=== PATIENT | male | born 1985 | race Caucasian/White ===

== ENCOUNTER 2016-05-24 13:18 | Emergency (ER) | payer BC, OTHER ==
[~2016-05-24] VITALS: Ht 167.6 cm; Wt 78.6 kg
[~2016-05-24 13:18] MED LIST: ACET-1138 PO; ASPEC81 PO; CLB200 PO; KLN1X PO; OXYSR10 PO; RXC5 PO; SNK PO
[2016-05-24 13:25] VITALS: Ht 167.6 cm; Wt 78.6 kg
[2016-05-24] MEDS ORDERED: KETOROLAC TROMETHAMINE 30 MG/ML VIAL IV STA (15:23)
[2016-05-24 15:33] LABS: URINE APPEARANCE CLEAR (CLEAR); URINE BILIRUBIN NEG (NEG); URINE COLOR YELLOW; URINE EPITHELIAL CELL AUTO 20-30 /lpf (0-5); URINE NITRITE NEG (NEG); URINE PH 6.5 (4.5-7.5); URINE SPECIFIC GRAVITY 1.028 (1.000-1.030); UROBILINOGEN NEG (NEG)
[2016-05-24 15:35] LABS: MANUAL MICROSCOPIC REQUIRED? NO; REVIEW REQ? NO
[2016-05-24 15:47] LABS: BASO % 0.4 %; BASO ABS # 0.04 K/uL (0-0.2); COMPLETE YES; EOS % 1.1 %; HEMATOCRIT 41.5 % (42-52); IG% 0.6 %; LYMPH % 25.5 %; LYMPH ABS # 2.79 K/uL (1.2-3.4); MEAN CELL VOLUME 85.2 fL (80-100); MEAN CORPUSCULAR HEMOGLOBIN 28.1 pg (25-34); MEAN PLATELET VOLUME 8.5 fL (7.4-10.4); MONO % 7.8 %; NEUT % 64.6 %; PLATELET COUNT 401 K/uL (130-400); RED BLOOD COUNT 4.87 M/uL (4.7-6.1); WHITE BLOOD COUNT 10.96 K/uL (4.8-10.8)
--- NOTE | 2016-05-24 15:58 | DIAGNOSTIC IMAGING REPORT ---
CHEST ONE VIEW PORTABLE CLINICAL HISTORY: htn dyspnea COMPARISON STUDY: 07/25/2015 FINDINGS: The bones soft tissues and hemidiaphragms are normal. The cardiomediastinal silhouette is normal. The lungs are clear. The pulmonary vasculature is normal. IMPRESSION: Negative chest. Electronically signed by: Juan Meza M.D. 05/24/2016 3:56 PM Dictated Date/Time: 05/24/2016 3:56 PM
--- NOTE | 2016-05-24 16:01 | DIAGNOSTIC IMAGING REPORT ---
CT SCAN OF THE BRAIN WITHOUT IV CONTRAST CLINICAL HISTORY: Headache. COMPARISON STUDY: CT of the brain dated 02/26/2014. TECHNIQUE: Unenhanced axial CT scan of the brain is performed from the vertex to the skull base. Automated dose control exposure was utilized. CT DOSE: 537.48 mGy.cm FINDINGS: Brain parenchyma: The brain parenchyma is normal in appearance. There is no hemorrhage, mass effect, or evidence of acute territorial ischemia by CT criteria. Nieto-white matter is preserved. No extra-axial fluid collection is seen. Ventricles, sulci, cisterns: Normal in configuration. Intracranial vasculature: The visualized intracranial vasculature at the skull base is normal in appearance. Calvarium: Unremarkable. Sinuses and mastoids: Trace mucosal thickening is seen in the left maxillary antrum. The remaining visualized paranasal sinuses are clear. The mastoid air cells are well pneumatized. Orbits: The bony orbits are grossly intact. IMPRESSION: No acute intracranial abnormality. Electronically signed by: Omar Carrion M.D. 05/24/2016 4:00 PM Dictated Date/Time: 05/24/2016 3:58 PM
[2016-05-24 16:10] LABS: BLOOD UREA NITROGEN 11 mg/dl (7-18); CALCIUM 8.9 mg/dl (8.5-10.1); CARBON DIOXIDE 32 mmol/L (21-32); CHLORIDE 103 mmol/L (98-107); GLUCOSE 93 mg/dl (70-99); POTASSIUM 4.3 mmol/L (3.5-5.1); SODIUM 141 mmol/L (136-145)
[2016-05-24] MEDS ORDERED: OXYC-57 PO (16:11)
[2016-05-24] MEDS ORDERED: META-38 PO (16:11)
[2016-05-24] MEDS ORDERED: LISI-725 PO (16:11)
[2016-05-24] MEDS ORDERED: ETAN50IN2 PO (16:11)
[2016-05-24] MEDS ORDERED: CLON1TAB3 PO (16:11)
[2016-05-24] MEDS ORDERED: NAPR1TAB9 PO (16:31)
--- NOTE | 2016-05-24 16:31 | DIAGNOSTIC IMAGING REPORT ---
LEFT SHOULDER MIN 2 VIEWS ROUTINE CLINICAL HISTORY: Left shoulder pain COMPARISON: None. DISCUSSION: No acute fractures are visualized. There are no dislocations. Small subchondral cysts are suspected within the humeral head. No periarticular calcifications are evident IMPRESSION: 1. Suspected subchondral cysts within the humeral head 2. No acute fractures or dislocations identified. Electronically signed by: Reggie Bowden M.D. 05/24/2016 4:30 PM Dictated Date/Time: 05/24/2016 4:29 PM
--- NOTE | 2016-05-24 17:26 | EMERGENCY ROOM VISIT NOTE ---
History Report prepared by Atul: Simin Sherwood Under the Supervision of: Dr. Iker Godwin D.O. First contact with patient: 14:57 Chief Complaint: HYPERTENSION Stated Complaint: HIGH BLOOD PRESSURE, ANN, DIZZY 220/110 History of Present Illness The patient is a 31 year old male who presents to the Emergency Room with complaints of persistent hypertension that began a few weeks ago. He currently rates his discomfort as a 7/10 in severity. The patient states that a few weeks ago he was feeling dizzy so he stopped at [employer] at work to have his blood pressure read. He states that it was 180/110 mmHg so he went to his PCP the next morning. The patient states that he was started on Lisinopril in the mornings. He states that he was instructed to stop at [employer] [facility] work each morning to have his blood pressure checked. The patient states that today he stopped and it was 160/110. He states that around 1245 he was going for lunch and he started feeling lightheaded and dizzy, and additionally noticed a headache. The patient states that he had his blood pressure rechecked and it was 220/110 mmHg. He denies his dizziness being a room spinning sensation, but describes it as feeling spacey, and losing consciousness and blacking out. The patient states that his headache is all over his head and is achy in nature, and additionally notices neck pain. He states that he has experienced blurry vision with his hypertension. The patient additionally notes nausea with his symptoms and states that he developed abdominal pain, but states that he ate a large lunch today. 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 The patient states that he lifts often, but denies doing much cardio. He states that he is an occasional smoker and states that he takes lifting supplements. The patient denies any drug or alcohol use, and additionally denies any steroid use. Pt denies fevers, chest pain, vomiting , diarrhea, pain with urination, and melena. Source of History: patient Onset: a few weeks ago Position: other (global) Symptom Intensity: 7/10 Quality: other (hypertension) Timing: other (persistent) Associated Symptoms: + SOB, + abdominal pain, + headache, + nausea, + neck pain Note: Associated Symptoms: blacking out, dizziness, lightheadedness, blurry vision, spacey Review of Systems See HPI for pertinent positives & negatives. A total of 10 systems reviewed and were otherwise negative. Past Medical & Surgical Medical Problems: (1) No Known Active Medical Problems Surgical Problems: (1) Post-operative state Family History No pertinent family history Social History Smoking Status: Current Some Day Smoker Marital Status: Housing Status: lives with significant other Occupation Status: employed Current/Historical Medications Scheduled Acetaminophen (Tylenol Extra Strength), 1,000 MG PO Q8 Etanercept (Enbrel), 50 MG PO WK Lisinopril (Zestril), 20 MG PO DAILY Naproxen (Aleve), 440 MG PO PRN UD Scheduled PRN Clonazepam (Klonopin), 1 MG PO BID PRN for Anxiety Metaxalone (Skelaxin), 800 MG PO QID PRN for Muscle Spasms Oxycodone/Acetaminophen 5MG/325MG (Percocet 5MG/325MG), 1 TABLET PO Q6H PRN for Pain Allergies Coded Allergies: Doxycycline (Verified Allergy, Severe, SWELLING OF THROAT, CHEST PAIN, DIFFICULTY BREATHING, 08/04/15) Physical Exam Vital Signs Date Time Temp Pulse Resp B/P Pulse Ox O2 Delivery O2 Flow Rate FiO2 05/24/16 17:49 36.9 93 18 140/85 97 05/24/16 17:47 93 18 140/85 97 Room Air 05/24/16 16:09 99 18 155/97 96 Room Air 05/24/16 13:25 36.9 102 18 163/98 96 Room Air Physical Exam GENERAL: Sitting up in bed, disheveled, no acute distress. EYE EXAM: normal conjunctiva, PERRL and EOM's intact OROPHARYNX: no exudate, no erythema, lips, buccal mucosa, and tongue normal and mucous membranes are moist NECK: supple, no nuchal rigidity, no adenopathy, non-tender LUNGS: Clear to auscultation. Normal chest wall mechanics HEART: no murmurs, S1 normal and S2 normal ABDOMEN: abdomen soft, non-tender, normo-active bowel sounds, no masses, no rebound or guarding. BACK: Back is symmetrical on inspection and there is no deformity, no midline tenderness, no CVA tenderness. SKIN: no rashes and no bruising UPPER EXTREMITIES: Left shoulder has pain on palpation from trapezius through proximal humerus. LOWER EXTREMITIES: No pitting edema. NEURO EXAM: Normal sensorium, cranial nerves II-XII grossly intact, normal speech, no gross weakness of arms, no gross weakness of legs. No drift. Finger to nose intact. Gross sensation intact. Medical Decision & Procedures ER Provider Diagnostic Interpretation: Xray results per the radiologist and my interpretation. Other results have been interpreted by the radiologist and reviewed by me. CHEST ONE VIEW PORTABLE CLINICAL HISTORY: htn dyspnea COMPARISON STUDY: 07/25/2015 FINDINGS: The bones soft tissues and hemidiaphragms are normal. The cardiomediastinal silhouette is normal. The lungs are clear. The pulmonary vasculature is normal. IMPRESSION: Negative chest. Electronically signed by: Juan Meza M.D. 05/24/2016 3:56 PM Dictated Date/Time: 05/24/2016 3:[address] SCAN OF THE BRAIN WITHOUT IV CONTRAST CLINICAL HISTORY: Headache. COMPARISON STUDY: CT of the brain dated 02/26/2014. TECHNIQUE: Unenhanced axial CT scan of the brain is performed from the vertex to the skull base. Automated dose control exposure was utilized. CT DOSE: 537.48 mGy.cm FINDINGS: Brain parenchyma: The brain parenchyma is normal in appearance. There is no hemorrhage, mass effect, or evidence of acute territorial ischemia by CT criteria. Nieto-white matter is preserved. No extra-axial fluid collection is seen. Ventricles, sulci, cisterns: Normal in configuration. Intracranial vasculature: The visualized intracranial vasculature at the skull base is normal in appearance. Calvarium: Unremarkable. Sinuses and mastoids: Trace mucosal thickening is seen in the left maxillary antrum. The remaining visualized paranasal sinuses are clear. The mastoid air cells are well pneumatized. Orbits: The bony orbits are grossly intact. IMPRESSION: No acute intracranial abnormality. Electronically signed by: Omar Carrion M.D. 05/24/2016 4:00 PM Dictated Date/Time: 05/24/2016 3:58 PM LEFT SHOULDER MIN 2 VIEWS ROUTINE CLINICAL HISTORY: Left shoulder pain COMPARISON: None. DISCUSSION: No acute fractures are visualized. There are no dislocations. Small subchondral cysts are suspected within the humeral head. No periarticular calcifications are evident IMPRESSION: 1. Suspected subchondral cysts within the humeral head 2. No acute fractures or dislocations identified. Electronically signed by: Reggie Bowden M.D. 05/24/2016 4:30 PM Dictated Date/Time: 05/24/2016 4:29 PM Laboratory Results 05/24/16 15:30 Red Blood Count 4.87, Mean Corpuscular Volume 85.2, Mean Corpuscular Hemoglobin 28.1, Mean Corpuscular Hemoglobin Concent 33.0, Mean Platelet Volume 8.5, Neutrophils (%) (Auto) 64.6, Lymphocytes (%) (Auto) 25.5, Monocytes (%) (Auto) 7.8, Eosinophils (%) (Auto) 1.1, Basophils (%) (Auto) 0.4, Neutrophils # (Auto) 7.08, Lymphocytes # (Auto) 2.79, Monocytes # (Auto) 0.86, Eosinophils # (Auto) 0.12, Basophils # (Auto) 0.04 05/24/16 15:30 Test 05/24/16 15:20 05/24/16 15:30 Urine Color YELLOW Urine Appearance CLEAR (CLEAR) Urine pH 6.5 (4.5-7.5) Urine Specific [place] 1.028 (1.000-1.030) Urine Protein NEG (NEG) Urine Glucose (UA) NEG (NEG) Urine Ketones NEG (NEG) Urine Occult Blood TRACE (NEG) Urine Nitrite NEG (NEG) Urine Bilirubin NEG (NEG) Urine Urobilinogen NEG (NEG) Urine Leukocyte Esterase NEG (NEG) Urine WBC (Auto) 1-5 /hpf (0-5) Urine RBC (Auto) 5-10 /hpf (0-4) Urine Hyaline Casts (Auto) 1-5 /lpf (0-5) Urine Epithelial Cells (Auto) 20-30 /lpf (0-5) Urine Bacteria (Auto) NEG (NEG) White Blood Count 10.96 K/uL (4.8-10.8) Red Blood Count 4.87 M/uL (4.7-6.1) Hemoglobin 13.7 g/dL (14.0-18.0) Hematocrit 41.5 % (42-52) Mean Corpuscular Volume 85.2 fL (80-100) Mean Corpuscular Hemoglobin 28.1 pg (25-34) Mean Corpuscular Hemoglobin Concent 33.0 g/dl (32-36) Platelet Count 401 K/uL (130-400) Mean Platelet Volume 8.5 fL (7.4-10.4) Neutrophils (%) (Auto) 64.6 % Lymphocytes (%) (Auto) 25.5 % Monocytes (%) (Auto) 7.8 % Eosinophils (%) (Auto) 1.1 % Basophils (%) (Auto) 0.4 % Neutrophils # (Auto) 7.08 K/uL (1.4-6.5) Lymphocytes # (Auto) 2.79 K/uL (1.2-3.4) Monocytes # (Auto) 0.86 K/uL (0.11-0.59) Eosinophils # (Auto) 0.12 K/uL (0-0.5) Basophils # (Auto) 0.04 K/uL (0-0.2) RDW Standard Deviation 46.8 fL (36.4-46.3) RDW Coefficient of Variation 15.0 % (11.5-14.5) Immature Granulocyte % (Auto) 0.6 % Immature Granulocyte # (Auto) 0.07 K/uL (0.00-0.02) Anion Gap 6.0 mmol/L (3-11) Est Creatinine Clear Calc Drug Dose 105.5 ml/min Estimated GFR () 115.7 Estimated GFR (Non- 99.8 BUN/Creatinine Ratio 11.0 (10-20) Calcium Level 8.9 mg/dl (8.5-10.1) Troponin I < 0.015 ng/ml (0-0.045) Laboratory results per my review. Medications Administered Medications (Trade) Dose Ordered Sig/Juan C Route Start Time Stop Time Status Last Admin Dose Admin Ketorolac Tromethamine (Toradol Inj) 30 mg NOW STAT IV 05/24/16 15:23 05/24/16 15:24 DC 05/24/16 15:51 30 MG ECG Indication: other (hypertension) Rate (beats per minute): 92 Rhythm: sinus rhythm Findings: no acute ischemic change, no ectopy, other (normal axis, poor baseline in V6) ED Course ED COURSE: Vital signs were reviewed and showed hypertensive, tachycardic The patients medical record was reviewed The above diagnostic studies were performed and reviewed. ED treatments and interventions as stated above. 1503: The patient was evaluated in room C7. A complete history and physical examination was performed. 1523: Ordered Toradol Inj 30 mg IV. 1714: Upon reevaluation, the patient is resting comfortably.I discussed my findings with the patient and he understands and agrees with the treatment plan. Based on the patients age, coexisting illnesses, exam and lab findings the decision to treat as an outpatient was made. The patient remained stable while under my care. The patient appeared well at the time of discharge. Medical Decision Differential diagnosis: Etiologies such as benign hypertension, hypertensive emergency, cardiovascular pathology, pheochromocytoma, electrolyte abnormality, renal disease, endorgan damage, as well as others were entertained. Patient is a 31-year-old male who presents the ER for hypertension physician with a headache. He notes that this has been going off-and-on intermittently the past 2 weeks. He recently started lisinopril and has been following up with his primary care doctor. He notes that his blood pressure becomes elevated he feels spacey and a little lightheaded. He will also get intermittent shortness of breath with this. Patient has no other complaints at this time. Patient is completely neurologically intact on exam. CT head was negative. CBC along with BMP and troponin were negative. Normal creatinine. UA shows no protein. EKG is no signs of ischemia. He was updated bedside. Blood pressures in the ER were 160s to 150. With no focal neuro deficit and blood pressure in the 150s to 60s he was updated and discharged follow-up with his primary care doctor. Central comfortable going home. Discussed with Pt concerning signs and symptoms to watch out for. Pt was instructed to follow up with their PCP and discussed with the patient their option to return to the ED at anytime for persistent or worsening symptoms. The appropriate anticipatory guidance and out-patient management, including indications for return to the emergency department, were explained at length to the patient and understood. Impression Primary Impression: Headache Additional Impressions: Hypertension Left shoulder pain Scribe Attestation The scribe's documentation has been prepared under my direction and personally reviewed by me in its entirety. I confirm that the note above accurately reflects all work, treatment, procedures, and medical decision making performed by me. Departure Information Dispostion Home / Self-Care Referrals Flex Lloyd (PCP) Forms HOME CARE DOCUMENTATION FORM, IMPORTANT VISIT INFORMATION, WORK / SCHOOL INSTRUCTIONS Patient Instructions My [facility] Additional Instructions Please follow up with your primary care doctor with in the next 24 hours. Any worsening of your symptoms, please return to the ED immediately. This includes fevers greater than 100.4, chest pain, shortness of breath, passing out, dizziness/lightheadedness, or any other concerning signs or symptoms from your standpoint. Please continue your blood pressure medications as prescribed. Problem Qualifiers Primary Impression: Headache Headache type: unspecified Headache chronicity pattern: acute headache Intractability: not intractable Qualified Codes: R51 - Headache Additional Impressions: Hypertension Hypertension type: unspecified secondary hypertension Qualified Codes: I15.9 - Secondary hypertension, unspecified Left shoulder pain Chronicity: acute Qualified Codes: M25.512 - Pain in left shoulder
[2016-05-24 17:49] VITALS: BP 140/85; PULSE 93; TEMP 36.9; O2SAT 97
--- NOTE | 2016-05-26 12:35 | EDITING REQUIRED CODING QUERY ---
CODING QUERY To promote full compliance with coding requirements relating to patient care, provider participation is requested in all cases of diagnostic assistant uncertainty. Please assist us with the question(s) below: Coding Question(s): Please clarify the side of the shoulder pain below, due to conflicting documentation. ( ) Left Shoulder Pain ( ) Right Shoulder Pain ( ) Bilateral Shoulder Pain Physician's Response(s): Thank you Kim Tineo Principal Diagnosis: "_that condition established after study, to be chiefly responsible for occasioning the admission of the patient to the hospital for care." Co-Existing Principal Diagnosis: "_when two or more diagnoses equally meet the criteria for principal diagnosis as determined by the circumstances of admission, diagnostic work up, and/or therapy provided, and the Alphabetic Index, Tabular List, or another coding guideline does not provide sequencing direction, any one of the diagnoses may be sequenced first." "When the physician has documented what appears to be a current diagnosis in the body of the record, but has not included the diagnosis in the final diagnostic statement, the physician should be asked whether the diagnosis should be added." (Source Coding [facility] 2 QTR90. p3-4)
== END 2016-05-24 17:49 | disposition home or self-care (01) ==
LOC: C.EDB 13:21 → C.EDC 17:49
DX: R51 Headache (principal); I15.9 Secondary hypertension, unspecified; M25.512 Pain in left shoulder; F17.200 Nicotine dependence, unspecified, uncomplicated; Z79.899 Other long term (current) drug therapy